=== PATIENT | male | born 1935 | race Caucasian/White ===

== ENCOUNTER 2017-05-28 17:46 | Inpatient (IN) | payer MEDICARE ==
[~2017-05-28] VITALS: Ht 177.8 cm; Wt 82.1 kg
[~2017-05-28 17:46] MED LIST: APIX5TAB PO; ATOR20TA65 PO; CLOP75TA14 PO; METO25 PO; PHEN300C6 PO
[2017-05-28] MEDS ORDERED: SODIUM CHLORIDE 0.9% 1000ML 1,000 ML IV ONE ×3 (18:15→19:23)
[2017-05-28] MEDS ORDERED: ONDANSETRON HCL 4 MG/2 ML VIAL ONE (18:15)
[2017-05-28 18:17] LABS: HEMATOCRIT 31.2 % (42-54); MEAN CORPUSCULAR HEMOGLOBIN 30.4 pg (27.0-33.0); MEAN CORPUSCULAR HGB CONC 33.8 g/dL (32.0-36.0); PLATELET COUNT (AUTO) 558 K/uL (130-400); RED BLOOD CELL COUNT(AUTO) 3.47 MIL/uL (4.50-6.20); RED CELL DISTRIBUTION WIDTH 14.9 % (11.0-15.5); WHITE BLOOD COUNT (AUTO) 12.2 K/uL (4.8-10.8)
[2017-05-28 18:26] LABS: CARBON DIOXIDE 22 mmol/L (21-32); CHLORIDE 101 mmol/L (101-111); CREATININE 1.3 mg/dL (0.5-1.5); GLOMERULAR FILTR. RATE CALC 56 mL/min (>60); GLUCOSE,RANDOM 203 mg/dL (70-105); POTASSIUM 3.8 mmol/L (3.5-5.1); SODIUM SERUM 138 mmol/L (136-145); UREA NITROGEN, BLOOD 21 mg/dL (7-18)
[2017-05-28] MEDS ORDERED: ACETAMINOPHEN 325 MG TAB ONE (18:29)
[2017-05-28 18:30] LABS: INR 1.08 (0.85-1.15); PARTIAL THROMBOPLASTIN TIME 20.1 SEC (26.3-35.5); PROTHROMBIN TIME 11.3 SEC (9.6-11.6)
[2017-05-28 18:40] LABS: ALANINE AMINOTRANSFERASE 276 U/L (12-78); ALBUMIN 2.6 g/dL (3.5-5.0); ASPARTATE AMINOTRANSFERASE 565 U/L (10-37); BILIRUBIN,TOTAL 3.3 mg/dL (0.2-1.0); CREATINE KINASE MB < 0.5 ng/mL (0.5-3.6); CREATINE KINASE, TOTAL 91 U/L (21-232); MYOGLOBIN 51 ng/mL (10-92); TOTAL PROTEIN, SERUM 7.3 g/dL (6.0-8.3); TROPONIN I 0.04 ng/mL (0.00-0.06)
[2017-05-28] MEDS ORDERED: VANCOMYCIN 1GM+NS 250ML 250 ML IV ONE (18:40)
[2017-05-28] MEDS ORDERED: ZOSYN 3.375GM+NS 50ML 50 ML IV ONE (18:40)
[2017-05-28 18:43] LABS: BAND NEUTROPHILS % (MANUAL) 11 % (0-2); BASOPHILS % (MANUAL) 1 % (0-2); MAN.DIFF COMMENT-IMPRESSION MANUAL DIFFERENTIAL; MONOCYTES % (MANUAL) 4 % (2-9); SEGMENTED NEUTROPHILS % 84 % (40-70)
[2017-05-28] MEDS ORDERED: NOREPINEPHRINE BITARTRATE 1 MG/1 ML ML IV ONE (23:33)
[2017-05-29] VITALS (31 sets, daily range): BP systolic 92–135; BP diastolic 50–90
[2017-05-29] MEDS ORDERED: ZOSYN 3.375GM+NS 50ML 50 ML IV ONE (00:09)
[2017-05-29] MEDS ORDERED: ZOSYN 3.375GM+NS 50ML 50 ML IV SCH ×2 (01:30→02:15)
[2017-05-29 02:21] LABS: APPEARANCE,URINE Clear (CLEAR); BILIRUBIN,URINE Moderate (NEGATIVE); COLOR,URINE Dark Yellow (YELLOW); GLUCOSE, URINE (UA) Negative (NEGATIVE); KETONES,URINE Negative (NEGATIVE); LEUKOCYTE ESTERASE ,URINE Negative (NEGATIVE); NITRATE,URINE Negative (NEGATIVE); OCCULT BLOOD,URINE Negative (NEGATIVE); PROTEIN,URINE Negative (NEGATIVE)
[2017-05-29 02:49] LABS: BACTERIA,URINE Few /HPF (None Seen); MUCUS,URINE Moderate LPF (None Seen); RBC,URINE None Seen /HPF (0-1); SQUAMOUS EPITHELIAL CELL,UR Moderate /LPF (0-2); WBC,URINE None Seen /HPF (0-1)
[2017-05-29] MEDS ORDERED: ONDANSETRON HCL 4 MG/2 ML VIAL IVP PRN (04:00)
[2017-05-29] MEDS ORDERED: NOREPINEPHRINE 4MG/NS 250ML IV SCH (04:00)
[2017-05-29] MEDS ORDERED: ACETAMINOPHEN 325 MG TAB PO PRN (04:00)
[2017-05-29] MEDS ORDERED: COMPOUND IV REFRIGERATED 1 EACH IVSOLN MISC PRN (04:00)
[2017-05-29] MEDS ORDERED: MORPHINE SULFATE 2 MG/ML 1ML SYG IVP PRN (04:00)
[2017-05-29] MEDS ORDERED: VANCOMYCIN PROTOCOL PER PHARMACY IV SCH (04:00)
[2017-05-29 04:06] LABS: CREATININE 1.1 mg/dL (0.5-1.5); POTASSIUM 3.3 mmol/L (3.5-5.1)
[2017-05-29 04:07] LABS: HEMATOCRIT 25.3 % (42-54); MEAN CORPUSCULAR HEMOGLOBIN 31.2 pg (27.0-33.0); MEAN CORPUSCULAR HGB CONC 34.2 g/dL (32.0-36.0); MEAN CORPUSCULAR VOLUME 91.1 fL (79-99); PLATELET COUNT (AUTO) 440 K/uL (130-400); RED BLOOD CELL COUNT(AUTO) 2.77 MIL/uL (4.50-6.20); RED CELL DISTRIBUTION WIDTH 15.3 % (11.0-15.5); WHITE BLOOD COUNT (AUTO) 18.6 K/uL (4.8-10.8)
[2017-05-29 04:50] LABS: BAND NEUTROPHILS % (MANUAL) 21 % (0-2); LYMPHOCYTES % (MANUAL) 6 % (22-44); MAN.DIFF COMMENT-IMPRESSION MANUAL DIFFERENTIAL; MONOCYTES % (MANUAL) 1 % (2-9); PLATELET MORPHOLOGY COMMENT INCREASED; SEGMENTED NEUTROPHILS % 72 % (40-70)
[2017-05-29] MEDS: SODIUM CHLORIDE 0.9% 1000ML 1,000 ML IV SCH ×2 (05:56→14:00)
[2017-05-29] MEDS: VANCOMYCIN 1.25 GM in SODIUM CHLORIDE 0.9% 250 ML IV SCH ×2 (06:41→17:35)
[2017-05-29] MEDS ORDERED: OMEP20CA10 PO (10:39)
[2017-05-29] MEDS: ZOSYN 3.375GM+NS 50ML 50 ML IV SCH ×2 (12:19→21:35)
[2017-05-29 12:48] LABS: ALBUMIN 1.9 g/dL (3.5-5.0); BILIRUBIN,DIRECT 3.9 mg/dL (0.0-0.3); BILIRUBIN,TOTAL 4.6 mg/dL (0.2-1.0); TOTAL PROTEIN, SERUM 5.6 g/dL (6.0-8.3)
[2017-05-29] MEDS: FAMOTIDINE/PF 20 MG/2 ML VIAL IV SCH ×2 (13:15→21:32)
[2017-05-29] MEDS ORDERED: PHARMACY COMMUNICATION MISC SCH ×2 (13:30→14:45)
[2017-05-29] MEDS ORDERED: PHENYTOIN SODIUM 300 MG PO SCH (21:00)
[2017-05-29] MEDS: APIXABAN 5 MG TABLET PO SCH (21:32)
[2017-05-29] MEDS: PHENYTOIN SODIUM 100 MG ERCAP PO SCH (21:32)
[2017-05-29] MEDS: ATORVASTATIN CALCIUM 20 MG TABLET PO SCH (21:32)
[2017-05-30] VITALS (14 sets, daily range): BP systolic 80–136; BP diastolic 43–79
[2017-05-30] MEDS: SODIUM CHLORIDE 0.9% 1000ML 1,000 ML IV SCH ×3 (02:54→21:23)
[2017-05-30 04:19] LABS: BASOPHILS % (AUTO) 0.2 % (0.0-5.0); EOSINOPHILS % (AUTO) 1.3 % (0.0-8.0); HEMATOCRIT 26.8 % (42-54); LYMPHOCYTES % (AUTO) 8.3 % (21.0-51.0); MEAN CORPUSCULAR HEMOGLOBIN 29.7 pg (27.0-33.0); MEAN CORPUSCULAR HGB CONC 32.9 g/dL (32.0-36.0); MEAN CORPUSCULAR VOLUME 90.1 fL (79-99); MONOCYTES % (AUTO) 5.9 % (3.0-13.0); NEUTROPHILS % (AUTO) 84.3 % (40.0-77.0); PLATELET COUNT (AUTO) 402 K/uL (130-400); RED BLOOD CELL COUNT(AUTO) 2.98 MIL/uL (4.50-6.20); RED CELL DISTRIBUTION WIDTH 15.6 % (11.0-15.5); WHITE BLOOD COUNT (AUTO) 13.2 K/uL (4.8-10.8)
[2017-05-30 04:40] LABS: PHENYTOIN (DILANTIN) 4.4 mcg/mL (10.0-20.0); POTASSIUM 3.3 mmol/L (3.5-5.1)
[2017-05-30] MEDS: ZOSYN 3.375GM+NS 50ML 50 ML IV SCH ×3 (07:37→21:21)
[2017-05-30] MEDS: VANCOMYCIN 1.25 GM in SODIUM CHLORIDE 0.9% 250 ML IV SCH ×2 (07:38→18:08)
[2017-05-30] MEDS: FAMOTIDINE/PF 20 MG/2 ML VIAL IV SCH ×2 (09:32→21:20)
[2017-05-30] MEDS: APIXABAN 5 MG TABLET PO SCH (09:32)
[2017-05-30] MEDS ORDERED: POTASSIUM CHLORIDE 10% ELIXIR 20 MEQ/15 ML UDCUP PO PRN (17:45)
[2017-05-30] MEDS ORDERED: LIDOCAINE HCL-MPF 1% 2ML VIAL IVP PRN (17:45)
[2017-05-30] MEDS ORDERED: POTASSIUM CHLORIDE 20MEQ/100ML 100 ML IV PRN (17:45)
[2017-05-30] MEDS: POTASSIUM CHLORIDE 20 MEQ ERTAB PO PRN (18:08)
[2017-05-30] MEDS ORDERED: ENOXAPARIN SODIUM 1 MG/KG SQ SCH (21:00)
[2017-05-30] MEDS: ENOXAPARIN SODIUM 80 MG/0.8 ML SQ SCH (21:20)
[2017-05-30] MEDS: ATORVASTATIN CALCIUM 20 MG TABLET PO SCH (21:20)
[2017-05-30] MEDS: PHENYTOIN SODIUM 100 MG ERCAP PO SCH (21:21)
[2017-05-31 02:58] VITALS: BP 121/72
[2017-05-31 04:31] LABS: HEMATOCRIT 26.7 % (42-54); MEAN CORPUSCULAR HEMOGLOBIN 31.8 pg (27.0-33.0); MEAN CORPUSCULAR HGB CONC 35.4 g/dL (32.0-36.0); PLATELET COUNT (AUTO) 344 K/uL (130-400); RED BLOOD CELL COUNT(AUTO) 2.96 MIL/uL (4.50-6.20); RED CELL DISTRIBUTION WIDTH 15.5 % (11.0-15.5); WHITE BLOOD COUNT (AUTO) 6.1 K/uL (4.8-10.8)
[2017-05-31 04:42] LABS: ALBUMIN 1.7 g/dL (3.5-5.0); BILIRUBIN,DIRECT 1.8 mg/dL (0.0-0.3); BILIRUBIN,TOTAL 2.4 mg/dL (0.2-1.0); CREATININE 0.9 mg/dL (0.5-1.5); POTASSIUM 3.6 mmol/L (3.5-5.1); TOTAL PROTEIN, SERUM 5.4 g/dL (6.0-8.3)
[2017-05-31 04:47] LABS: BASOPHILS % (MANUAL) 1 % (0-2); EOSINOPHILS % (MANUAL) 3 % (1-6); LYMPHOCYTES % (MANUAL) 18 % (22-44); MAN.DIFF COMMENT-IMPRESSION MANUAL DIFFERENTIAL; MONOCYTES % (MANUAL) 6 % (2-9); SEGMENTED NEUTROPHILS % 72 % (40-70)
[2017-05-31 04:48] LABS: PLATELET MORPHOLOGY COMMENT ADEQUATE
[2017-05-31] MEDS: ZOSYN 3.375GM+NS 50ML 50 ML IV SCH ×3 (05:02→21:46)
[2017-05-31] MEDS: VANCOMYCIN 1.25 GM in SODIUM CHLORIDE 0.9% 250 ML IV SCH (06:02)
[2017-05-31] MEDS: SODIUM CHLORIDE 0.9% 1000ML 1,000 ML IV SCH ×2 (06:02→21:44)
[2017-05-31 07:48] VITALS: BP 116/76
[2017-05-31] MEDS: FAMOTIDINE/PF 20 MG/2 ML VIAL IV SCH ×2 (10:07→21:51)
[2017-05-31] MEDS: ENOXAPARIN SODIUM 80 MG/0.8 ML SQ SCH ×2 (10:08→21:48)
[2017-05-31 11:46] VITALS: BP 137/78
[2017-05-31 17:04] VITALS: BP 121/66
[2017-05-31 19:16] VITALS: BP 118/69
[2017-05-31] MEDS: PHENYTOIN SODIUM 100 MG ERCAP PO SCH (21:51)
[2017-05-31] MEDS: ATORVASTATIN CALCIUM 20 MG TABLET PO SCH (21:51)
[2017-05-31 23:08] VITALS: BP 128/65
[2017-06-01] VITALS (15 sets, daily range): BP systolic 115–165; BP diastolic 69–90
[2017-06-01] MEDS: ZOSYN 3.375GM+NS 50ML 50 ML IV SCH ×3 (04:23→21:11)
[2017-06-01] MEDS: SODIUM CHLORIDE 0.9% 1000ML 1,000 ML IV SCH ×3 (04:24→21:13)
[2017-06-01 04:49] LABS: BASOPHILS % (AUTO) 0.9 % (0.0-5.0); EOSINOPHILS % (AUTO) 3.4 % (0.0-8.0); HEMATOCRIT 28.9 % (42-54); LYMPHOCYTES % (AUTO) 27.9 % (21.0-51.0); MEAN CORPUSCULAR HEMOGLOBIN 31.1 pg (27.0-33.0); MEAN CORPUSCULAR HGB CONC 34.6 g/dL (32.0-36.0); MEAN CORPUSCULAR VOLUME 89.7 fL (79-99); MONOCYTES % (AUTO) 8.9 % (3.0-13.0); NEUTROPHILS % (AUTO) 58.9 % (40.0-77.0); PLATELET COUNT (AUTO) 333 K/uL (130-400); RED BLOOD CELL COUNT(AUTO) 3.22 MIL/uL (4.50-6.20); RED CELL DISTRIBUTION WIDTH 15.4 % (11.0-15.5); WHITE BLOOD COUNT (AUTO) 5.7 K/uL (4.8-10.8)
[2017-06-01 05:11] LABS: ALBUMIN 1.8 g/dL (3.5-5.0); BILIRUBIN,DIRECT 1.3 mg/dL (0.0-0.3); BILIRUBIN,TOTAL 1.9 mg/dL (0.2-1.0); CREATININE 0.9 mg/dL (0.5-1.5); POTASSIUM 3.5 mmol/L (3.5-5.1); TOTAL PROTEIN, SERUM 5.7 g/dL (6.0-8.3)
[2017-06-01 06:19] LABS: INR 1.02 (0.85-1.15); PARTIAL THROMBOPLASTIN TIME 31.1 SEC (26.3-35.5); PROTHROMBIN TIME 10.7 SEC (9.6-11.6)
[2017-06-01] MEDS: ENOXAPARIN SODIUM 80 MG/0.8 ML SQ SCH ×2 (09:00→21:12)
[2017-06-01] MEDS: FAMOTIDINE/PF 20 MG/2 ML VIAL IV SCH ×2 (09:13→21:12)
[2017-06-01] MEDS ORDERED: FENTANYL CITRATE PF 50 MCG/1 ML 2ML VIAL ONE (15:39)
[2017-06-01] MEDS ORDERED: MIDAZOLAM HCL 1 MG/ML 2ML VIAL ONE (15:39)
[2017-06-01] MEDS ORDERED: ISOVUE-370 50ML VIAL IV ONE (15:41)
[2017-06-01] MEDS ORDERED: PROPOFOL 10 MG/ML 20ML VIAL IV ONE (15:49)
[2017-06-01] MEDS ORDERED: INDOMETHACIN 50 MG SUPP.RECT RC SCH (17:30)
[2017-06-01] MEDS: PHENYTOIN SODIUM 100 MG ERCAP PO SCH (21:12)
[2017-06-01] MEDS: ATORVASTATIN CALCIUM 20 MG TABLET PO SCH (21:12)
[2017-06-02 04:00] VITALS: BP 130/67
[2017-06-02 04:20] LABS: BASOPHILS % (AUTO) 0.9 % (0.0-5.0); EOSINOPHILS % (AUTO) 3.1 % (0.0-8.0); HEMATOCRIT 27.8 % (42-54); LYMPHOCYTES % (AUTO) 38.9 % (21.0-51.0); MEAN CORPUSCULAR HEMOGLOBIN 31.2 pg (27.0-33.0); MEAN CORPUSCULAR HGB CONC 34.7 g/dL (32.0-36.0); MONOCYTES % (AUTO) 10.2 % (3.0-13.0); NEUTROPHILS % (AUTO) 46.9 % (40.0-77.0); PLATELET COUNT (AUTO) 320 K/uL (130-400); RED BLOOD CELL COUNT(AUTO) 3.09 MIL/uL (4.50-6.20); RED CELL DISTRIBUTION WIDTH 14.9 % (11.0-15.5); WHITE BLOOD COUNT (AUTO) 5.3 K/uL (4.8-10.8)
[2017-06-02 04:37] LABS: ALBUMIN 1.7 g/dL (3.5-5.0); BILIRUBIN,DIRECT 0.6 mg/dL (0.0-0.3); CREATININE 0.8 mg/dL (0.5-1.5); POTASSIUM 3.5 mmol/L (3.5-5.1); TOTAL PROTEIN, SERUM 5.6 g/dL (6.0-8.3)
[2017-06-02] MEDS: ZOSYN 3.375GM+NS 50ML 50 ML IV SCH ×2 (04:58→13:30)
[2017-06-02 07:00] VITALS: BP 117/75
[2017-06-02] MEDS: POTASSIUM CHLORIDE 20 MEQ ERTAB PO PRN ×2 (07:50→09:58)
[2017-06-02] MEDS: ENOXAPARIN SODIUM 80 MG/0.8 ML SQ SCH (09:58)
[2017-06-02] MEDS: FAMOTIDINE/PF 20 MG/2 ML VIAL IV SCH (09:58)
[2017-06-02 11:00] VITALS: BP 129/73
== END 2017-06-02 16:00 | disposition home or self-care (01) | DRG 872 ==
LOC: EDH 17:46 → EDHIP 22:00 → 2CH 23:44 → 2DH 05-30 14:31
PROVIDERS: ADMIT Family Medicine; ATTEND Family Medicine
PROC: 0FC98ZZ Extirpation of Matter from Common Bile Duct, Via Natural or Artificial Opening Endoscopic (ICD-10-PCS; principal; 2017-06-01)
PROC: BF131ZZ Fluoroscopy of Gallbladder and Bile Ducts using Low Osmolar Contrast (ICD-10-PCS; 2017-06-01)
DX: A41.9 Sepsis, unspecified organism (principal); E44.0 Moderate protein-calorie malnutrition; K80.62 Calculus of gallbladder and bile duct with acute cholecystitis without obstruction; R17 Unspecified jaundice; E11.51 Type 2 diabetes mellitus with diabetic peripheral angiopathy without gangrene; B96.20 Unspecified Escherichia coli [E. coli] as the cause of diseases classified elsewhere; D64.9 Anemia, unspecified; G40.909 Epilepsy, unspecified, not intractable, without status epilepticus; T50.905A Adverse effect of unspecified drugs, medicaments and biological substances, initial encounter; B96.89 Other specified bacterial agents as the cause of diseases classified elsewhere; E78.5 Hyperlipidemia, unspecified; I10 Essential (primary) hypertension; I99.8 Other disorder of circulatory system; K29.70 Gastritis, unspecified, without bleeding; K29.80 Duodenitis without bleeding; K55.20 Angiodysplasia of colon without hemorrhage; K82.8 Other specified diseases of gallbladder; R79.1 Abnormal coagulation profile; Z79.01 Long term (current) use of anticoagulants; Z86.718 Personal history of other venous thrombosis and embolism; Z68.26 Body mass index [BMI] 26.0-26.9, adult
CPT/HCPCS: 36415; 71010; 74176; 74181; 74330; 76705; 78226; 80048; 80053; 80061; 80076; 80185; 80202; 81001; 82150; 82550; 82553; 82948; 83605; 83690; 83874; 84484; 85025; 85610; 85730; 87040; 87088; 87186; 93005; 99291; A9537; C1769; C1773; J1650; J2250; J2405; J2543; J2704; J3010; J3370; J3480; J3490; J7030; Q9967

== ENCOUNTER 2017-06-22 10:21 | Inpatient (IN) | payer MEDICARE ==
[~2017-06-22] VITALS: Ht 177.8 cm; Wt 78.8 kg
[~2017-06-22 10:21] MED LIST changes: +OMEP20CA10 PO
[2017-06-22 10:48] LABS: BASOPHILS % (AUTO) 1.2 % (0.0-5.0); EOSINOPHILS % (AUTO) 5.8 % (0.0-8.0); HEMATOCRIT 41.4 % (42-54); LYMPHOCYTES % (AUTO) 28.2 % (21.0-51.0); MEAN CORPUSCULAR HEMOGLOBIN 29.9 pg (27.0-33.0); MEAN CORPUSCULAR HGB CONC 32.4 g/dL (32.0-36.0); MEAN CORPUSCULAR VOLUME 92.4 fL (79-99); MONOCYTES % (AUTO) 7.7 % (3.0-13.0); NEUTROPHILS % (AUTO) 57.1 % (40.0-77.0); NUCLEATED RED BLOOD CELLS 0.1 % (0.0-0.19); PLATELET COUNT (AUTO) 312 K/uL (130-400); RED BLOOD CELL COUNT(AUTO) 4.48 MIL/uL (4.50-6.20); RED CELL DISTRIBUTION WIDTH 16.7 % (11.0-15.5); WHITE BLOOD COUNT (AUTO) 4.7 K/uL (4.8-10.8)
[2017-06-22 10:50] LABS: INR 0.96 (0.85-1.15); PARTIAL THROMBOPLASTIN TIME 23.1 SEC (26.3-35.5); PROTHROMBIN TIME 10.1 SEC (9.6-11.6)
[2017-06-22 10:54] LABS: BILIRUBIN,DIRECT 0.2 mg/dL (0.0-0.3); BILIRUBIN,TOTAL 0.4 mg/dL (0.2-1.0); TOTAL PROTEIN, SERUM 7.7 g/dL (6.0-8.3)
[2017-06-22 11:17] LABS: B-TYPE NATRIURETIC PEPTIDE 44 pg/mL (0-100)
[2017-06-22] MEDS ORDERED: ASPIRIN 325 MG TABLET ONE (12:21)
[2017-06-22 20:00] VITALS: BP 132/74
[2017-06-22 23:15] VITALS: BP 124/79
[2017-06-23 03:52] VITALS: BP 102/65
[2017-06-23 07:41] VITALS: BP 119/80
[2017-06-23 11:00] VITALS: BP 135/68
[2017-06-23] MEDS ORDERED: METOPROLOL TARTRATE 25 MG TAB PO SCH (14:30)
[2017-06-23] MEDS ORDERED: CLOPIDOGREL BISULFATE 75 MG TAB PO SCH (14:30)
[2017-06-23] MEDS ORDERED: PANTOPRAZOLE SODIUM 40 MG TABLET.DR PO SCH (14:30)
[2017-06-23 16:06] VITALS: BP 126/73
[2017-06-23 19:07] VITALS: BP 113/57
[2017-06-23] MEDS: APIXABAN 5 MG TABLET PO SCH (20:40)
[2017-06-23] MEDS: PHENYTOIN 100 MG/4 ML UDCUP PO SCH ×2 (20:40→20:51)
[2017-06-23] MEDS: METOPROLOL TARTRATE 25 MG TAB PO SCH (20:40)
[2017-06-23] MEDS: ATORVASTATIN CALCIUM 20 MG TABLET PO SCH (20:40)
[2017-06-23 23:10] VITALS: BP 122/60
[2017-06-24 03:34] VITALS: BP 130/73
[2017-06-24 03:59] LABS: APPEARANCE,URINE Clear (CLEAR); BILIRUBIN,URINE Negative (NEGATIVE); COLOR,URINE Yellow (YELLOW); GLUCOSE, URINE (UA) Negative (NEGATIVE); KETONES,URINE Negative (NEGATIVE); LEUKOCYTE ESTERASE ,URINE Negative (NEGATIVE); NITRATE,URINE Negative (NEGATIVE); OCCULT BLOOD,URINE Nonhemolyzed Trace (NEGATIVE); PROTEIN,URINE Negative (NEGATIVE); UROBILINOGEN,URINE 0.2 mg/dL (0.2-1.0)
[2017-06-24 04:27] LABS: BACTERIA,URINE None Seen /HPF (None Seen); WBC,URINE None Seen /HPF (0-1)
[2017-06-24 04:28] LABS: SQUAMOUS EPITHELIAL CELL,UR None Seen /LPF (0-2)
[2017-06-24] MEDS: PANTOPRAZOLE SODIUM 40 MG TABLET.DR PO SCH (06:38)
[2017-06-24 07:12] VITALS: BP 112/65
[2017-06-24] MEDS: CLOPIDOGREL BISULFATE 75 MG TAB PO SCH (09:19)
[2017-06-24] MEDS: APIXABAN 5 MG TABLET PO SCH ×2 (09:19→19:48)
[2017-06-24] MEDS: METOPROLOL TARTRATE 25 MG TAB PO SCH ×2 (09:19→21:00)
[2017-06-24 11:07] VITALS: BP 125/67
[2017-06-24 16:08] VITALS: BP 117/68
[2017-06-24 19:04] VITALS: BP 117/63
[2017-06-24] MEDS: ATORVASTATIN CALCIUM 20 MG TABLET PO SCH (19:48)
[2017-06-24] MEDS: PHENYTOIN 100 MG/4 ML UDCUP PO SCH (19:48)
[2017-06-24 23:04] VITALS: BP 127/64
[2017-06-25 03:09] VITALS: BP 107/66
[2017-06-25] MEDS: PANTOPRAZOLE SODIUM 40 MG TABLET.DR PO SCH (06:28)
[2017-06-25 08:05] VITALS: BP 116/72
[2017-06-25] MEDS: APIXABAN 5 MG TABLET PO SCH ×2 (08:24→21:10)
[2017-06-25] MEDS: CLOPIDOGREL BISULFATE 75 MG TAB PO SCH (08:24)
[2017-06-25] MEDS: METOPROLOL TARTRATE 25 MG TAB PO SCH ×2 (08:24→23:09)
[2017-06-25 11:24] VITALS: BP 118/73
[2017-06-25 16:00] VITALS: BP 124/75
[2017-06-25 19:43] VITALS: BP 133/73
[2017-06-25] MEDS: PHENYTOIN 100 MG/4 ML UDCUP PO SCH (21:10)
[2017-06-25] MEDS: ATORVASTATIN CALCIUM 20 MG TABLET PO SCH (21:10)
[2017-06-25 23:22] VITALS: BP 106/66
[2017-06-26 04:00] VITALS: BP 120/72
[2017-06-26] MEDS: PANTOPRAZOLE SODIUM 40 MG TABLET.DR PO SCH (06:20)
[2017-06-26 07:00] VITALS: BP 111/65
[2017-06-26] MEDS: APIXABAN 5 MG TABLET PO SCH (08:18)
[2017-06-26] MEDS: METOPROLOL TARTRATE 25 MG TAB PO SCH (08:18)
[2017-06-26 11:00] VITALS: BP 104/66
[2017-06-26 16:00] VITALS: BP 140/73
== END 2017-06-26 18:29 | DRG 74 ==
LOC: EDH 10:21 → EDHIP 12:26 → 2DH 20:07
PROVIDERS: ADMIT Family Medicine; ATTEND Family Medicine
DX: G90.8 Other disorders of autonomic nervous system (principal); G40.909 Epilepsy, unspecified, not intractable, without status epilepticus; E78.5 Hyperlipidemia, unspecified; R55 Syncope and collapse; I10 Essential (primary) hypertension; R53.1 Weakness; Z86.718 Personal history of other venous thrombosis and embolism; Z91.19 Patient's noncompliance with other medical treatment and regimen; Z28.21 Immunization not carried out because of patient refusal
CPT/HCPCS: 36415; 70450; 71045; 72125; 80048; 80076; 80185; 81001; 82550; 83690; 83880; 84484; 85025; 85610; 85730; 93005; 93306; 93880